=== PATIENT | female | born 1955 | race Caucasian/White ===

== ENCOUNTER 2022-01-18 09:02 | Outpatient (CLI) | payer MEDICARE | END 2022-01-18 09:03 | disposition home or self-care (01) | LOC: NM 09:02 | PROVIDERS: ATTEND Psychiatry & Neurology Neurology | DX: R26.2 Difficulty in walking, not elsewhere classified (principal); R25.9 Unspecified abnormal involuntary movements | CPT/HCPCS: 78803; A9584 ==